=== PATIENT | female | born 1945 | race Caucasian/White ===

== ENCOUNTER 2021-10-20 12:49 | Emergency (ER) | payer OTHER ==
[~2021-10-20 12:49] MED LIST: COZAAR 25MG TAB25 MG PO; CRESTOR5 MG PO; LEXAPRO20 MG PO; PHENERGAN12.5 M1 PO; SYNTHROID75 MCG PO
[2021-10-20 14:47] LABS: BASOPHIL 0.3 % (0-2); EOSINOPHIL 0.2 % (0-7); HCT 40.5 % (37.0-47.0); HGB 13.5 g/dl (12.5-16.0); LYMPHOCYTE 18.2 % (15-48); MCH 28.7 pg (25.0-31.0); MCHC 33.3 g/dL (32.0-36.0); MCV 86.2 fL (78.0-100.0); MPV 9.3 fL (6.0-9.5); NRBC 0; PLT 350 K/uL (150-400); RDW 12.9 % (11.5-14.0); WBC 6.1 K/uL (4.0-10.5)
[2021-10-20 15:06] LABS: ALBUMIN 3.4 g/dL (3.4-5.0); BILIRUBIN - TOTAL 0.4 mg/dL (0.2-1.0); CREATININE 0.83 mg/dL (0.51-0.95); GLOBULIN (CALCULATION) 3.6 g/dL; POTASSIUM 4.4 mmol/L (3.5-5.1)
[2021-10-20 15:48] LABS: BILIRUBIN NEGATIVE (NEGATIVE); BLOOD NEGATIVE Ery/uL (NEGATIVE); CLARITY CLEAR (CLEAR); COLOR YELLOW (YELLOW); GLUCOSE (U) NORMAL (NORMAL); LEUKOCYTES NEGATIVE Leu/uL (NEGATIVE); NITRITE NEGATIVE (NEGATIVE); PROTEIN NEGATIVE (NEGATIVE); SPECIFIC GRAVITY <=1.005 (1.001-1.030); UROBILINOGEN 0.2 mg/dL (0.2-1.0)
[2021-10-20] MEDS ORDERED: ONDANSETRON ODT4 MG PO ×2 (16:10→16:18)
== END 2021-10-20 16:55 | disposition home or self-care (01) ==
LOC: FER 12:49
PROVIDERS: Nurse Practitioner Family
DX: U07.1 COVID-19 (principal); E86.0 Dehydration; J44.9 Chronic obstructive pulmonary disease, unspecified; I10 Essential (primary) hypertension; Z88.5 Allergy status to narcotic agent
CPT/HCPCS: 36415; 71045; 80053; 81003; 85025; J2405; J7030

== ENCOUNTER 2021-11-22 10:55 | Emergency (ER) | payer OTHER ==
[~2021-11-22 10:55] MED LIST changes: +ONDANSETRON ODT4 MG PO
[2021-11-22 12:53] LABS: BASOPHIL 0.3 % (0-2); EOSINOPHIL 0.1 % (0-7); HCT 41.6 % (37.0-47.0); HGB 13.3 g/dl (12.5-16.0); LYMPHOCYTE 7.2 % (15-48); MCH 28.4 pg (25.0-31.0); MCV 88.9 fL (78.0-100.0); MONOCYTE 4.6 % (0-12); MPV 9.7 fL (6.0-9.5); NEUTROPHIL 87.4 % (41-80); NRBC 0; PLT 433 K/uL (150-400); RBC 4.68 M/uL (4.20-5.40); RDW 13.2 % (11.5-14.0); WBC 11.9 K/uL (4.0-10.5)
[2021-11-22 13:23] LABS: ALBUMIN 3.4 g/dL (3.4-5.0); BILIRUBIN - TOTAL 0.3 mg/dL (0.2-1.0); BUN/CREAT RATIO (CALC) 25.2 RATIO; CREATININE 1.03 mg/dL (0.51-0.95); GLOBULIN (CALCULATION) 4.4 g/dL; POTASSIUM 5.4 mmol/L (3.5-5.1); TOTAL PROTEIN 7.8 g/dL (6.4-8.2)
[2021-11-22] MEDS ORDERED: PHENERGAN12.5 M1 PO (14:19)
== END 2021-11-22 14:20 | disposition home or self-care (01) ==
LOC: FER 10:55
PROVIDERS: Emergency Medicine
DX: E87.6 Hypokalemia (principal); R11.0 Nausea; J44.9 Chronic obstructive pulmonary disease, unspecified
CPT/HCPCS: 36415; 80053; 85025; J2405; J2550; J7030